=== PATIENT | male | born 1975 | race Caucasian/White ===

== ENCOUNTER 2021-12-02 09:11 | Outpatient (CLI) | payer BC, SELFPAY ==
--- NOTE | 2021-12-02 09:15 | MR_ITS ---
[facility] [address] [facility] [address] Phone:?[phone] Fax:?[phone] Referring Physician Information: Kemar Sánchez M.D. [address] [place] [id number] Phone:?[phone] Fax:?[phone] Patient:?Attila Schrader D.O.B:?1975 Sex:?Male Phone:?[phone] [facility] MRN:?[id number] Exam Date:?12/02/2021 ? EXAM: MRI of the RIGHT SHOULDER, without contrast CLINICAL: Male, 46 years old, with right shoulder pain. INDICATION: Evaluate for bursitis versus rotator cuff pathology. PRIOR SURGERY: None reported. PLAIN FILMS: None available. COMPARISONS: No prior MRIs available. TECHNICAL: Using a 1.5T MR scanner and a localizing shoulder surface coil: 3.0 mm?coronal obliques: PD, T2, STIR 3.0 mm?sagittal obliques: PD, T2 3.0 mm?axials: PD, T2 SEDATION: None. CONTRAST: None. IMPRESSION: 1. 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 2. Findings in keeping with those which can be associated with any clinical evidence of relatively early stage acromiohumeral impingement/rotator cuff syndrome. 3. Mild subacromial bursal edema/bursitis. 4. Superficial and deep surface tendinosis and minor surface fraying/wear of the infraspinatus tendon without more marked tendinopathy or more defined tear. 5. Borderline narrowing of acromiohumeral distance and moderate inferior hypertrophy of the acromioclavicular joint contribute encroachment upon the subacromial space. 6. Expected degeneration and perhaps some irregularity of the anterior labrum but without convincing Bankart/Perthes morphology or humeral Hill-Sachs lesion. 7. No glenohumeral chondromalacia/osteoarthritis. 8. No glenohumeral joint effusion at this time. FINDINGS: Glenohumeral joint: Effusion/cyst: Physiologic effusion. No paralabral ganglion cyst. Articular cartilage: Humeral head: No osteochondral abnormalities. Glenoid: No osteochondral abnormalities. Loose bodies: No demonstrable loose bodies. Inferior glenohumeral ligament/axillary recess: The axillary recess is normal in thickness and signal. No evidence of adhesive capsulitis or capsuloligamentous injury. Labrum: Some signal alteration and indistinctness expected to represent an element of degeneration and irregularity of the anterior labrum although without convincing typical Bankart/Perthes morphology (axial images 16-20). The posterior labrum appears small but otherwise unremarkable. Bones: Proximal humerus: No fracture or marrow edema/pathology. No humeral Hill-Sachs or reverse Hill-Sachs lesion/impaction or contusion. Glenoid: No fracture or marrow edema/pathology. No osseous Bankart lesion. Coracoacromial arch: Acromion morphology: Mild type II acromion without defined subacromial spur/enthesophyte. No mesoacromion or preacromion. Acromiohumeral space: Borderline narrow at a minimum of 5 mm. Coracohumeral space: Widely patent. 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 The inferior hypertrophy of the acromioclavicular joint contributes mild encroachment upon the contour of the underlying anterior supraspinatus myotendinous junction (sagittal PD series 7, images 14 & 15; coronal PD series 5, images 12 & 13). Ligaments: Coracoclavicular ligaments are intact. Bursae: Subacromial-subdeltoid: Mild subacromial bursal edema (coronal STIR series 4, images 17-12; sagittal T2 series 8, image 11). Subcoracoid: No convincing subcoracoid bursal thickening/bursitis. Rotator cuff and muscles/tendons: Supraspinatus: Mild supraspinatus tendinosis/tendinopathy with suspected areas of shallow superficial bursal surface and perhaps even shallow deep surface fraying/attenuation but without more marked tendinopathy or more defined partial- or full-thickness tear (coronal images 14-9). No tendon or myotendinous junction retraction. No muscle atrophy. Infraspinatus: No tendinopathy, tear or atrophy. Teres minor: No tendinopathy, tear or atrophy. Subscapularis: No tendinopathy, tear or atrophy. Deltoid: No strain or atrophy. Biceps tendon, long head: The long head of the biceps tendon is present within the bicipital groove. Intra-articular and extra-articular segments are intact without tendinopathy or displacement. Axilla: No axillary masses or abnormally enlarged lymphadenopathy. [facility] Electronically signed on 12/03/2021 11:57:00 AM by Panda Mak M.D.
== END 2021-12-02 09:12 | disposition home or self-care (01) ==
LOC: MRI 09:12
PROVIDERS: PCP Family Medicine
DX: M25.511 Pain in right shoulder (principal); M19.011 Primary osteoarthritis, right shoulder; M75.51 Bursitis of right shoulder
CPT/HCPCS: 73221